=== PATIENT | female | born 1975 | race Caucasian/White ===

== ENCOUNTER 2017-09-05 09:47 | Outpatient (CLI) | payer OTHER ==
[~2017-09-05 09:47] MED LIST: CELEXA20 MG PO; CLARINEX5 MG/TAB PO
[2017-09-07] MEDS ORDERED: DOXYCYCLINE HY100 M2 PO (12:20)
[2017-09-07] MEDS ORDERED: NAPROXEN500 MG PO (12:21)
[2017-09-13] MEDS ORDERED: PEPCID40 MG PO (05:33)
[2017-09-13] MEDS ORDERED: ZOFRAN4 MG PO ×2 (05:33→05:36)
== END 2017-09-05 17:00 | disposition home or self-care (01) ==
LOC: SONOGRAMA 09:47 → MAMO-SONO 10:45 → SONOGRAMA 17:00
DX: O20.0 Threatened abortion (principal)

== ENCOUNTER → 2017-09-14 11:16 | Outpatient (CLI) | payer OTHER ==
[~2017-09-14 11:16] MED LIST changes: +DOXYCYCLINE HY100 M2 PO; +NAPROXEN500 MG PO; +PEPCID40 MG PO; +ZOFRAN4 MG PO
== END | disposition home or self-care (01) ==
LOC: LAB 11:16
DX: O20.0 Threatened abortion (principal)

== ENCOUNTER 2017-09-20 13:49 | Outpatient (CLI) | payer OTHER | END 2017-09-20 14:11 | disposition home or self-care (01) | LOC: LAB 13:49 | DX: N91.1 Secondary amenorrhea (principal) ==

== ENCOUNTER 2018-08-30 07:51 | Day surgery (SDC) | payer OTHER ==
[2018-08-30] MEDS ORDERED: DOXYCYCLINE HY100 MG PO (13:44)
[2018-08-30] MEDS ORDERED: NAPROXEN500 MG PO (13:44)
[2018-08-30] MEDS ORDERED: ZANTAC150 MG PO (13:54)
== END 2018-08-30 18:00 | disposition home or self-care (01) ==
LOC: CIR.AMB 07:51
DX: O02.1 Missed abortion (principal); Z3A.01 Less than 8 weeks gestation of pregnancy

== ENCOUNTER 2025-06-04 11:39 | Emergency (ER) | payer OTHER ==
[~2025-06-04] VITALS: Ht 157.5 cm; Wt 77.1 kg
[~2025-06-04 11:39] MED LIST changes: +DOXYCYCLINE HY100 MG PO; +ZANTAC150 MG PO
[2025-06-04 12:21] VITALS: BP 155/97; O2SAT 100
[2025-06-04] MEDS ORDERED: BUPROPION XL150 MG PO (12:21)
[2025-06-04] MEDS ORDERED: BUSPIRONE HCL5 MG (12:21)
[2025-06-04] MEDS ORDERED: CITALOPRAM HBR20 MG (12:21)
[2025-06-04 13:41] LABS: BASO % 0.8 % (0.1-1.2); EOS # 0.02 (0.04-0.54); EOS % 0.4 % (0.7-7.0); LYMPH # 0.84 (1.18-3.74); LYMPH % 16.8 % (19.3-53.1); MEAN PLATELET VOLUME 9.50 fl (9.4-12.4); MONO # 0.27 (0.24-0.82); MONO % 5.4 % (4.7-12.5); NEUT # 3.82 (1.56-6.13); NEUT % 76.4 % (34.0-71.1); RED CELL DISTRIBUTION WIDTH 13.2 % (11.6-14.4)
[2025-06-04 14:00] LABS: URINE APPEARANCE Clear; URINE BILIRRUBIN Negative (NEGATIVE); URINE BLOOD Negative; URINE COLOR Yellow; URINE GLUCOSE Negative (NEGATIVE); URINE LEUKOCYTE Negative; URINE NITRATE Negative; URINE PROTEIN Negative (NEGATIVE); URINE UROBILINOGEN 0.2 E.U./dl
[2025-06-04 14:00] LABS: INR 1.05
[2025-06-04 14:01] LABS: URINE BACTERIA 37.2 uL (0.0-1933); URINE EPITHELIAL CELLS 10.3 uL (0.0-38.8); URINE RBC 4.8 uL (0.0-20.8)
[2025-06-04 14:06] LABS: URINE CAST 0.00 uL (0.0-1.40); URINE KETONE 80 (NEGATIVE); URINE WBC 1.3 uL (0.0-23.2)
[2025-06-04 14:06] LABS: ALT/SGPT 38 U/L (12-78); AST/SGOT 25 U/L (15-37); BILIRUBIN TOTAL 0.43 mg/dL (0.3-1.2); BUN CREA RATIO 17 (7.0-25.0); CREATININE SERUM 0.78 mg/dL (0.55-1.02); GFR 78.83; GLOBULINA 4.0 G/DL (2.4-3.5); GLUCOSE FASTING 91 mg/dL (65-100); OSMOLALITY SERUM 279 MOSM/KG (275-295)
[2025-06-04 14:10] LABS: HCG QUANTITATIVE < 1 mUI/mL (1-3)
[2025-06-04 14:22] LABS: COVID-19 AG NEGATIVE (NEGATIVE)
[2025-06-04] MEDS ORDERED: ENALAPRILAT DIHYDRATE 1.25 MG/ML VIAL IV ONE (15:28)
== END 2025-06-04 19:20 | disposition home or self-care (01) ==
LOC: ER 11:39
PROVIDERS: General Practice
DX: E86.0 Dehydration (principal); R07.9 Chest pain, unspecified; Z20.822 Contact with and (suspected) exposure to COVID-19